=== PATIENT | male | born 1935 | race Caucasian/White ===

== ENCOUNTER 2017-02-06 11:46 | Emergency (ER) | payer OTHER, MEDICARE ==
[~2017-02-06] VITALS: Ht 172.7 cm; Wt 82.0 kg
[~2017-02-06 11:46] MED LIST: ALBU1AER INH; ASPI81TA11 PO; DULC5TAB PO; FERR325T PO; FINA5TAB77 PO; ISOS60 PO; OMEP20TA PO; ONDA4TAB7 PO; PLAV75TA PO; RANO500 PO; TAMS0.4C67 PO; TOPR25TA2 PO; TRAM50TA PO
[2017-02-06] MEDS ORDERED: OMEP40CA2 PO (11:57)
[2017-02-06] MEDS ORDERED: TAMS5CAP PO (11:57)
[2017-02-06] MEDS ORDERED: ASPI1TAB69 PO (11:57)
[2017-02-06] MEDS ORDERED: METO25TA3 PO (11:57)
[2017-02-06] MEDS ORDERED: FINA5TAB2 PO (11:57)
[2017-02-06] MEDS ORDERED: TRAM50TA PO (11:59)
[2017-02-06] MEDS ORDERED: DULC100C PO (11:59)
[2017-02-06] MEDS ORDERED: UMEC1AER INH (11:59)
[2017-02-06] MEDS ORDERED: ZOFR8TAB PO (11:59)
[2017-02-06 12:00] VITALS: BP 160/73; PULSE 62; RESP 16; TEMP 98.1; O2SAT 96
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
[2017-02-06] MEDS ORDERED: ACETAMINOPHEN 325 MG TAB PO ONE (13:00)
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
[2017-02-06] MEDS ORDERED: WALKER WHEELS/F1 MIS (15:10)
--- NOTE | 2017-02-06 16:37 | HHI.FF ---
Face to Face Verification Diagnosis: (1) Femoral condyle fracture (2) Tibial plateau fracture, left Physical Therapy Order: Evaluate and Treat, Improve ambulation, Strength and gait training I have seen patient Mitchell Zurita on 02/06/17. My clinical findings support the need for the requested home health care services because: High risk of falls I certify that my clinical findings support that this patient is homebound because: Unsteady gait/balance Naty Markham MD Feb 06, 2017 16:37
[2017-02-06 16:40] VITALS: BP 162/78; PULSE 64; RESP 16; O2SAT 97
== END 2017-02-06 17:22 | disposition home or self-care (01) ==
LOC: NEPD 11:46
DX: S82.142A Displaced bicondylar fracture of left tibia, initial encounter for closed fracture (principal); S72.422A Displaced fracture of lateral condyle of left femur, initial encounter for closed fracture; I10 Essential (primary) hypertension; V03.90XA Pedestrian on foot injured in collision with car, pick-up truck or van, unspecified whether traffic or nontraffic accident, initial encounter; Z95.1 Presence of aortocoronary bypass graft
CPT/HCPCS: 73564; 73700; 99284; L1830

== ENCOUNTER 2017-02-21 11:55 | Emergency (ER) | payer MEDICARE ==
[~2017-02-21] VITALS: Ht 172.7 cm; Wt 85.0 kg
[~2017-02-21 11:55] MED LIST changes: -ALBU1AER INH; +ASPI1TAB69 PO; -ASPI81TA11 PO; +DULC100C PO; -DULC5TAB PO; -FERR325T PO; +FINA5TAB2 PO; -FINA5TAB77 PO; -ISOS60 PO; +METO25TA3 PO; -OMEP20TA PO; +OMEP40CA2 PO; -ONDA4TAB7 PO; -PLAV75TA PO; -RANO500 PO; -TAMS0.4C67 PO; +TAMS5CAP PO; -TOPR25TA2 PO; +UMEC1AER INH; +WALKER WHEELS/F1 MIS; +ZOFR8TAB PO
[2017-02-21 11:59] VITALS: BP 182/81; PULSE 64; RESP 18; TEMP 97.8; O2SAT 98
--- NOTE | 2017-02-21 12:02 | PD ---
Physical Exam Time Seen by Provider: 12:00 Narrative 81 y/o male here for evaluation of bilateral proximal arm pain for 3 days. Using a walker because of a L tibial plateau fracture. VSS Seen at triage desk. Awaiting bed placement. Data Data Last Documented VS Vital Signs Date Time Temp Pulse Resp B/P Pulse Ox O2 Delivery O2 Flow Rate FiO2 02/21/17 11:59 97.8 64 18 182/81 98 MDM Medical Record Reviewed: Yes Supervised Visit with JOHN: Stanislav Mendoza February 21, 2017 12:02
[2017-02-21] MEDS ORDERED: BEDSIDE COMMODE1 MI1 ×2 (12:34→12:35)
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
== END 2017-02-21 13:21 | disposition home or self-care (01) ==
LOC: NEPD 11:55
DX: S46.111A Strain of muscle, fascia and tendon of long head of biceps, right arm, initial encounter (principal); S46.112A Strain of muscle, fascia and tendon of long head of biceps, left arm, initial encounter; E78.00 Pure hypercholesterolemia, unspecified; J44.9 Chronic obstructive pulmonary disease, unspecified; I10 Essential (primary) hypertension; Z72.0 Tobacco use; X50.3XXA Overexertion from repetitive movements, initial encounter; Y93.01 Activity, walking, marching and hiking; Y92.69 Other specified industrial and construction area as the place of occurrence of the external cause; Y99.8 Other external cause status
CPT/HCPCS: 99283

== ENCOUNTER 2017-02-24 14:23 | Emergency (ER) | payer OTHER, MEDICARE ==
[~2017-02-24] VITALS: Ht 172.7 cm; Wt 82.0 kg
[~2017-02-24 14:23] MED LIST changes: +BEDSIDE COMMODE1 MI1
[2017-02-24 14:26] VITALS: BP 168/74; PULSE 74; RESP 18; TEMP 98.2; O2SAT 99
--- NOTE | 2017-02-24 15:42 | PD ---
HPI Chief Complaint: Pain: Acute or Chronic Time Seen by Provider: 15:01 Travel History International Travel<30 days: No Contact w/Intl Traveler<30days: No Traveled to known affect area: No History of Present Illness HPI This patient complains of pain in his right arm. It's worse with movement and resistance. He was here for this same complaint 3 days ago. It is not improved. Pain is moderately severe. Sometimes it radiates down from the bicep into his hand or up into his shoulder and neck region. When is transferring from the walker to the wheelchair that's when it is worse. When he puts pressure on the right bicep area the pain gets bad. Patient has history of problem with narcotic addiction and does not want narcotics. He is hasn't to have any sedating medication. This was offered to him 3 days ago but the physician did not want to cause him any drowsiness and increased fall risk. PFSH Past Medical History Hx Anticoagulant Therapy: Yes (ASA) Arthritis: Yes Asthma: No Autoimmune Disease: No Blood Disorders: No Anxiety: No Depression: No Heart Rhythm Problems: No Cancer: Yes (CHRONIC LEUKEMIA) Cardiac Catheterization: Yes (BY DR. HUSSEIN AND BY DR. GOULD) Cardiovascular Problems: Yes (HTN , CAD , CABG X 4 ) High Cholesterol: Yes Chemotherapy: No Chest Pain: Yes Congestive Heart Failure: No COPD: Yes Cerebrovascular Accident: No Coronary Artery Disease: Yes Diabetes: No Diminished Hearing: No Diverticulitis: Yes Endocrine: No Gastrointestinal Disorders: Yes (HU'S ESOPH., GERD, CONSTIPATION) GERD: Yes Glaucoma: No Genitourinary: No Headaches: No Hepatitis: No Hiatal Hernia: No Hypertension: Yes Immune Disorder: No Inguinal Hernia: Yes Implanted Vascular Access Dvce: Yes Kidney Stones: No Musculoskeletal: Yes (SPINAL STENOSIS) Neurologic: Yes (MIGRAINES- NOT IN THE PAST 30 YEARS, ) Psychiatric: No Reproductive: No Respiratory: Yes (COPD) Integumentary: No Migraines: No Myocardial Infarction: No Radiation Therapy: No Renal Failure: No Seizures: No Sickle Cell Disease: No Sleep Apnea: No Thyroid Disease: No Triglycerides - High: Yes Ulcer: No Past Surgical History Abdominal Surgery: Yes (ABD./ ING. HERNIA REP.; COLON RESECT., LYSIS ADHESIONS , APPY) AICD: No Appendectomy: Yes Arteriovenous Shunt: No Body Medical Devices: CERVICAL HARDWARE Cardiac Surgery: Yes (CABG) Cholecystectomy: Yes Coronary Artery Bypass Graft: No Ear Surgery: No Endocrine Surgery: No Eye Surgery: No Genitourinary Surgery: No Insulin Pump: No Joint Replacement: No Oral Surgery: No Pacemaker: No Thoracic Surgery: Yes (CABG) Other Surgery: Yes (APPY, COLON RESECT, SB RESECT, C SPINE SX, R SHOULDER REP, GIANLUCA, [facility] HER ) Social History Alcohol Use: No Tobacco Use: No Substance Use: No Allergies-Medications (Allergen,Severity, Reaction): Coded Allergies: Toradol (Verified Adverse Reaction, Severe, vomit, 02/06/17) po toradol only iv toradol ok Uncoded Allergies: no narcotics (Adverse Reaction, Mild, 05/21/13) FEARS HAVING TO EXPERIENCE WITHDRAWAL AGAIN Reported Meds & Prescriptions Reported Meds & Active Scripts Active Bedside Commode (Device) 1 Mis Mis 1 Ea .ROUTE DIRECTED Walker with Front Wheels (Device) 1 Mis Mis 1 Ea .ROUTE DIRECTED Reported Dulcolax Stool Softener (Docusate Sodium) 100 Mg Cap 100 Mg PO BID Zofran (Ondansetron HCl) 8 Mg Tab 8 Mg PO TID PRN Anoro Ellipta Inh (Umeclidinium/Vilanterol) 62.5-25 Mcg/Act Aero 1 Puff INH DAILY Tramadol (Tramadol HCl) 50 Mg Tab 50 Mg PO Q6H PRN Finasteride 5 Mg Tab 5 Mg PO DAILY Do not crush. Aspirin 81 Mg Tabdr 81 Mg PO DAILY Flomax (Tamsulosin HCl) 0.4 Mg Cap 0.4 Mg PO HS Metoprolol Tartrate 25 Mg Tab 25 Mg PO BID Omeprazole 40 Mg Cap 40 Mg PO DAILY Review of Systems General / Constitutional: No: Fever HENT: No: Headaches Cardiovascular: No: Chest Pain or Discomfort, Diaphoresis Respiratory: No: Cough Physical Exam Narrative NECK: Symmetrical appearance, midline trachea. No mass or crepitus. Thyroid without enlargement, tenderness, or mass. NEUROLOGICAL: Awake and alert. Pupils are equal round and reactive. Motor and sensory grossly within normal limits. Five out of 5 muscle strength in all muscle groups. Normal speech. SKIN: Focused skin assessment reveals no rash or ulcers. Skin is warm and dry. Palpation shows no induration or nodules. Right arm: There is some tenderness in the distal bicep region. There is no obvious or abnormality objectively. No ecchymosis or edema. Pulse and sensation intact. He has some pain when he image editor tightly. Data Data Last Documented VS Vital Signs Date Time Temp Pulse Resp B/P Pulse Ox O2 Delivery O2 Flow Rate FiO2 02/24/17 14:26 98.2 74 18 168/74 99 MDM Medical Decision Making Medical Screen Exam Complete: Yes Emergency Medical Condition: Yes Medical Record Reviewed: Yes Differential Diagnosis Biceps tear, brachial plexus injury, muscle strain Narrative Course I have reviewed the patient's electronic medical record. Reviewed his visit from 3 days ago for the same problem. I offered medication for pain but he declines He does have an appointment with his orthopedic surgeon Dr. Crawford coming up but he is frustrated with the timing of the visit, he would like it much more prompt than its been offered. I don't have a lot emergently to offer him. He says he cannot have an MRI due to implanted device I don't feel plain films would be helpful I think orthopedic follow-up and primary care follow-up are his next step He declines any medications Diagnosis Primary Impression: Right upper limb pain Additional Instructions: Follow-up with primary care and orthopedist Med/Other Pt SpecificInfo: Other Disposition: 01 DISCHARGE HOME Condition: Stable Gabino Polanco MD February 24, 2017 15:42
== END 2017-02-24 16:26 | disposition home or self-care (01) ==
LOC: NEPD 14:23
DX: M79.601 Pain in right arm (principal)
CPT/HCPCS: 99283

== ENCOUNTER → 2017-04-11 | Day surgery (SDC) | payer MEDICARE ==
[~2017-04-11] MED LIST changes: +DEXAMETHASONE SOD PHOS 4 MG/ML VIAL ONE; +EPINEPHrine HCL (1:1000) 1 MG/ML VIAL ONE; +LACTATED RINGER'S 1000 ML INJ 1,000 ML ONE; +MOXIFLOXACIN 0.5% OPHT SOLN 3 ML BTL ONE; +PHENYLEPHRINE HCL 10% OPTH SOLN 5 ML BTL ONE; +SODIUM CHLORIDE 0.9% INJ 10 ML ONE; +TOBRAMYCIN/DEXAMETHASONE OPTH OINT 3.5 GM TUBE ONE; +ceFAZolin INJ 1,000 MG VIAL ONE; +prednisoLONE ACETATE 1% OPHT SUSP 5 ML BTL ONE
== END | disposition home or self-care (01) ==
LOC: ESDC 10:45
PROVIDERS: ATTEND Ophthalmology
DX: H33.8 Other retinal detachments (principal)
CPT/HCPCS: J0171; J0690; J1100; J7120

== ENCOUNTER → 2017-04-12 | Day surgery (SDC) | payer MEDICARE ==
[~2017-04-12] MED LIST changes: +ALTEPLASE LEFT EYE ONE; +ONDANSETRON HCL 4 MG/2 ML VIAL IV PUSH ONE; +PROPARACAINE HCL 0.5% OPHT SOLN 15 ML BTL ONE; +PROPOFOL 200 MG/20 ML AMP IV ONE; +TRIAMCINOLONE ACETONIDE 40 MG/ML VIAL ONE
--- NOTE | 2017-04-14 16:39 | MP ---
cc: [facility]List DATE OF SURGERY: 04/12/2017 DATE OF : 1935 PREOPERATIVE DIAGNOSIS: Hemorrhagic retinal detachment, macular degeneration, central vision loss, left eye. POSTOPERATIVE DIAGNOSIS Hemorrhagic retinal detachment, macular degeneration, central vision loss, left eye. PROCEDURE Pars vitrectomy with repair of hemorrhagic retinal detachment using subretinal tissue plasminogen activator, air-fluid exchange, left eye. ANESTHESIA Dr. Hunter, general. BLOOD LOSS Less than 1 cc. INDICATIONS FOR PROCEDURE This is a delightful patient presented with substantial vision loss in his left eye. The patient was found to have a large cell macula hemorrhage, causing hemorrhagic retinal detachment affecting the majority of his macula from retinacular degeneration. The patient elected for immediate treatment with Anti <<1:08>> injection and then hemorrhagic retinal detachment repair via Pars plana vitrectomy with tissue plasminogen activator. The patient understands the risks, benefits and alternatives and the guarded prognosis with the severity of his condition. PROCEDURE NOTE Informed consent was obtained, the patient brought to operating room for anesthesia was established. The left eye was prepped and draped in sterile fashion with Betadine in the conjunctival fornix. A deep port pars vitrectomy was established with self-retaining infusion cannula. Core vitreous was evacuated. Posterior vitreous detachment created. Subretinal TPA was injected using [place] subretinal cannula. Scleral depression examination revealed no retinal holes, tears, peripheral retinal holes, tears or detachments. Partial air-fluid change was carried out. The trocars were removed and sclerotomies closed. The patient will remain supine for 45 minutes after t-PA injection and then maintain a head-up position. The eye was patched with subconjunctival Ancef and dexamethasone were given. Eye was patched Tobramycin ointment. The patient brought to recovery room in stable condition. Continue followup with [facility] for his postoperative care. MD JOAQUIN Cason/dania /5:38 PM /4:19 PM
== END | disposition home or self-care (01) ==
LOC: ESDC 14:25
PROVIDERS: ATTEND Ophthalmology
DX: H33.22 Serous retinal detachment, left eye (principal); H35.30 Unspecified macular degeneration
CPT/HCPCS: 00145; 67108; J0171; J0690; J1100; J2405; J3010; J3301; J7120

== ENCOUNTER → 2017-08-10 | Outpatient (CLI) | payer MEDICARE ==
[~2017-08-10] MED LIST changes: -ALTEPLASE LEFT EYE ONE; -DEXAMETHASONE SOD PHOS 4 MG/ML VIAL ONE; -EPINEPHrine HCL (1:1000) 1 MG/ML VIAL ONE; -LACTATED RINGER'S 1000 ML INJ 1,000 ML ONE; -MOXIFLOXACIN 0.5% OPHT SOLN 3 ML BTL ONE; -ONDANSETRON HCL 4 MG/2 ML VIAL IV PUSH ONE; -PHENYLEPHRINE HCL 10% OPTH SOLN 5 ML BTL ONE; -PROPARACAINE HCL 0.5% OPHT SOLN 15 ML BTL ONE; -PROPOFOL 200 MG/20 ML AMP IV ONE; -SODIUM CHLORIDE 0.9% INJ 10 ML ONE; -TOBRAMYCIN/DEXAMETHASONE OPTH OINT 3.5 GM TUBE ONE; -TRIAMCINOLONE ACETONIDE 40 MG/ML VIAL ONE; -ceFAZolin INJ 1,000 MG VIAL ONE; -prednisoLONE ACETATE 1% OPHT SUSP 5 ML BTL ONE
--- NOTE | 2017-08-14 12:43 | RSPPFT ---
DATE OF PROCEDURE: 08/10/17 COMMENTS: VOLUMES DYNAMIC: FVC normal; FEV1 moderately reduced. STATIC: TLC, FRC and RV normal. FLOWS: FEV1% moderately reduced; FEF 25-75 severely reduced. DIFFUSION: Moderately reduced. FLOW VOLUME LOOP: Pattern of variable intrathoracic airways obstruction. IMPRESSION: Moderately severe obstructive ventilatory defect with no significant hyperinflation. There is a moderate reduction in diffusion and mild elevation in airways resistance. No significant improvement post-bronchodilator, although this should not preclude a trial of therapy if clinically indicated.
== END ==
LOC: HRSP 13:06
PROVIDERS: ATTEND Internal Medicine
DX: J44.9 Chronic obstructive pulmonary disease, unspecified (principal)
CPT/HCPCS: 94060; 94726; 94729

== ENCOUNTER 2018-11-02 18:46 | Observation (INO) ==
--- NOTE | 2018-11-02 20:14 | ED ---
HPI General Chief complaint: Weakness Stated complaint: weakness Time Seen by Provider: 11/02/18 19:54 History of Present Illness HPI narrative: 83-year-old male with a history of hypertension and, CAD with CABG x4, leukemia, COPD, chronic low back pain presents to the emergency department for evaluation of fatigue and malaise for 1 week with elevated white blood cell count. Patient states that for the last week he has had generalized weakness, fatigue and overall malaise. States that he saw his primary care earlier this week about these complaints and they did blood work as an outpatient and called and told him that his white blood cell count was 20. States they advised him to come to the ED for evaluation. The patient states for the past week he has also been feeling confused, states that he is forgetting things more easily. Patient's is at bedside and states he has been more forgetful over the last week. Patient is awake, alert and oriented x4. States he feels slightly short of breath. States he had a cough last night but that today it has improved. States he is also feeling slightly lightheaded. Denies syncope, dizziness, chest pain, abdominal pain, nausea, vomiting, diarrhea, swelling of the extremities, calf pain, dysuria. PCP Dr. Duncan. No other complaints. Related Data Home Medications Medication Instructions Recorded Confirmed albuterol sulfate [ProAir HFA] 1 puff INHALATION Q4-6H PRN 11/02/18 11/02/18 amlodipine 5 mg PO BID 11/02/18 11/02/18 aspirin [Aspirin Low Dose] 81 mg PO DAILY 11/02/18 11/02/18 bisacodyl [Dulcolax (bisacodyl)] 5 mg PO DAILY 11/02/18 11/02/18 jxihvklb-suc-GL-lycopen-lutein 1 tab PO DAILY 11/02/18 11/02/18 [Centrum Silver] omeprazole 40 mg PO DAILY 11/02/18 11/02/18 ondansetron 8 mg PO BID PRN 11/02/18 11/02/18 tiotropium-olodaterol [Stiolto 2 puff INHALATION DAILY 11/02/18 11/02/18 Respimat] tramadol 50 mg PO Q6H 11/02/18 11/02/18 Allergies Allergy/AdvReac Type Severity Reaction Status Date / Time ketorolac AdvReac Severe vomit Verified 11/02/18 19:28 no narcotics AdvReac Mild Anaphylaxis Uncoded 11/02/18 19:28 Review of Systems ROS: all other systems reviewed are negative COUNT INCLUDES THE [facility] Medical History Medical History Arthritis (Acute) COPD (chronic obstructive pulmonary disease) (Acute) Cataract (Acute) Chronic lymphocytic leukemia (Acute) Coronary artery disease (Acute) HTN (hypertension) (Acute) History of open sigmoidectomy (Acute) Macular degeneration (Acute) Sigmoid diverticulosis (Acute) Surgical History Surgical History History of appendectomy (Acute) History of cholecystectomy (Acute) Hx of inguinal hernia surgery (Acute) Previous back surgery (Acute) S/P CABG x 4 (Acute) S/P hernia surgery (Acute) S/P laparotomy (Acute) Family History Family History Mother COPD (chronic obstructive pulmonary disease) Father Hodgkin lymphoma Social History Social History Substance History: No History of Abuse Second Hand Smoke Exposure: No Smoking Status: Former smoker (Quit smoking 15-20 years ago) How Often Do You Have a Drink Containing Alcohol: Never Recent Travel in [facility] within the Last 8 Weeks: No Recent Out of Country Travel within the Last 8 Weeks: No Immunization History Tetanus Immunization: Unsure Exam Narrative Exam Narrative: GENERAL: Well-nourished and well-developed pleasant patient in no acute distress who is nontoxic appearing. SKIN: Warm and dry. HEAD: Normocephalic and atraumatic. EYES: No injection, drainage, or hyphema noted. PERRLA. EOMI. ENT: No nasal drainage noted. Oropharynx is clear and the TMs are normal with good landmarks. NECK: Supple and the trachea is midline. CARDIOVASCULAR: Regular rate and rhythm. RESPIRATORY: Breath sounds are equal bilaterally with no accessory muscle use, wheezing, rhonchi, or crackles. GASTROINTESTINAL: Abdomen is soft, non-tender, and nondistended. MUSCULOSKELETAL: No obvious deformities, swelling, cyanosis, or ecchymosis is present throughout the upper and lower extremities. Patient has full range of motion without any signs of neurovascular compromise. Distal pulses are 2+ throughout. Strength 5/5 upper and lower extremity is equal bilaterally. NEUROLOGICAL: Awake, alert, and oriented. Normal speech and gait. Cranial nerves are grossly intact. Course Initial Documented Vital Signs Temperature 98.5 F 11/02/18 19:20 Pulse Rate 69 11/02/18 19:20 Respiratory Rate 20 11/02/18 19:20 Blood Pressure 167/67 H 11/02/18 19:20 Pulse Oximetry 95 11/02/18 19:20 Last Documented Vital Signs Temperature 98.3 F 11/03/18 20:00 Pulse Rate 66 11/03/18 20:00 Respiratory Rate 16 11/03/18 20:00 Blood Pressure 173/71 H 11/03/18 20:00 Pulse Oximetry 94 L 11/03/18 20:00 Medical Decision Making MDM Narrative Medical decision making narrative: 83-year-old male presents to the emergency department for evaluation of 1 week history of generalized weakness, fatigue and confusion. Patient is afebrile, vital signs are stable. Physical examination is essentially unremarkable, no focal neurologic deficits. IV access is obtained, labs been drawn and sent. Patient is placed on cardiac telemetry and pulse oximetry monitoring. After I did physical examination the patient began complaining of nausea therefore was administered Zofran 4 mg IV. CBC shows white blood cell count of 19.8. CMP is unremarkable. Lactic acid within normal limits. Head CT shows stable senescent changes without acute intracranial abnormality. Chest x-ray shows slight left lung base atelectasis, no focal consolidation. Influenza negative. Patient will be kept in observation for leukocytosis. Concern is that this is related to his leukemia and patient should have evaluation by his oncologist. Discussed with Dr. Pink [facility] who accepts patient to her service. I discussed the case with my attending physician Dr. Alcantara who is aware of the patients history, physical examination findings, and treatment plan. Medical Screen Exam Complete: Yes Emergency Medical Condition: Yes Lab Data Result diagrams: 11/03/18 08:45 11/03/18 08:45 Lab Results 11/02/18 11/02/18 11/02/18 Range/Units 20:15 20:15 20:15 WBC 19.8 H (4.0-11.0) th/mm3 RBC 5.25 (4.50-5.90) mil/mm3 Hgb 16.4 (13.0-17.0) gm/dL Hct 48.3 (39.0-51.0) % MCV 92.0 (80.0-100.0) fL MCH 31.2 (27.0-34.0) pg MCHC 33.9 (32.0-36.0) % RDW 15.6 (11.6-17.2) % Plt Count 166 (150-450) th/mm3 MPV 8.8 (7.0-11.0) fL Prelim Diff (Auto) Slide review pending Neut % (Auto) 27.2 (16.0-70.0) % Lymph % (Auto) 67.6 H (9.0-44.0) % [place] % (Auto) 4.6 (0.0-8.0) % Eos % (Auto) 0.3 (0.0-4.0) % Baso % (Auto) 0.3 (0.0-2.0) % Neut # (Auto) 5.4 (1.8-7.7) th/mm3 Lymph # (Auto) 13.4 H (1.0-4.8) th/mm3 [place] # (Auto) 0.9 (0.0-0.9) th/mm3 Eos # (Auto) 0.1 (0.0-0.4) th/mm3 Baso # (Auto) 0.0 (0.0-0.2) th/mm3 WBC Differential Manual diff final Seg Neuts % (Manual) 28 (16-70) % Band Neuts % (Manual) (0-6) % Lymphocytes % (Manual) 68 H (9-44) % Monocytes % (Manual) 4 (0-8) % Eosinophils % (Manual) (0-4) % Abs Neuts (Manual) 5.5 (1.8-7.7) th/mm3 Differential Comment . Smudge Cells (None) Platelet Estimate Normal (Normal) Platelet Morphology Normal (Normal) RBC Morphology Normal (Normal) Sodium 142 (136-145) meq/L Potassium 3.8 (3.5-5.1) meq/L Chloride 106 (98-107) meq/L Carbon Dioxide 27.8 (21.0-32.0) meq/L Anion Gap 8 (5-15) meq/L BUN 14 (7-18) mg/dL Creatinine 1.10 (0.60-1.30) mg/dL Estimated GFR 64 L (>89) mL/min Random Glucose 94 (74-106) mg/dL Lactic Acid 1.1 (0.4-2.0) mmol/L Calcium 8.8 (8.5-10.1) mg/dL Magnesium 2.5 (1.5-2.5) mg/dL Total Bilirubin 0.4 (0.2-1.0) mg/dL AST 13 L (15-37) U/L ALT 21 (12-78) U/L Alkaline Phosphatase 77 (45-117) U/L Total Protein 7.3 (6.4-8.2) g/dL Albumin 3.6 (3.4-5.0) g/dL Lipase 293 (73-393) U/L Urine Color (Yellw/Straw) Urine Clarity (Clear) Urine pH (5.0-8.5) Ur Specific [place] (1.002-1.035) Urine Protein (Neg-Trace) mg/dL Urine Glucose (UA) (Negative) mg/dL Urine Ketones (Negative) mg/dL Urine Occult Blood (Negative) Urine Nitrate (Negative) Urine Bilirubin (Negative) Urine Urobilinogen (Less than 2) mg/dL Ur Leukocyte Esterase (Negative) Urine RBC (0-3) /hpf Urine WBC (0-5) /hpf Urine Mucus (Occasional) /lpf Micro UA Comment Ur Microscopic Review Urine Culture Comments IgG (690-1690) mg/dL IgA (107-591) mg/dL IgM (37-225) mg/dL 11/02/18 11/03/18 11/03/18 Range/Units 20:15 00:02 08:45 WBC 13.4 H (4.0-11.0) th/mm3 RBC 4.45 L (4.50-5.90) mil/mm3 Hgb 14.0 D (13.0-17.0) gm/dL Hct 40.5 (39.0-51.0) % MCV 91.1 (80.0-100.0) fL MCH 31.4 (27.0-34.0) pg MCHC 34.5 (32.0-36.0) % RDW 15.2 (11.6-17.2) % Plt Count 131 L (150-450) th/mm3 MPV 8.1 (7.0-11.0) fL Prelim Diff (Auto) Slide review pending Neut % (Auto) 28.9 (16.0-70.0) % Lymph % (Auto) 66.9 H (9.0-44.0) % [place] % (Auto) 3.7 (0.0-8.0) % Eos % (Auto) 0.3 (0.0-4.0) % Baso % (Auto) 0.2 (0.0-2.0) % Neut # (Auto) 3.9 (1.8-7.7) th/mm3 Lymph # (Auto) 9.0 H (1.0-4.8) th/mm3 [place] # (Auto) 0.5 (0.0-0.9) th/mm3 Eos # (Auto) 0.0 (0.0-0.4) th/mm3 Baso # (Auto) 0.0 (0.0-0.2) th/mm3 WBC Differential Manual diff final Seg Neuts % (Manual) 22 (16-70) % Band Neuts % (Manual) 1 (0-6) % Lymphocytes % (Manual) 73 H (9-44) % Monocytes % (Manual) 3 (0-8) % Eosinophils % (Manual) 1 (0-4) % Abs Neuts (Manual) 3.1 (1.8-7.7) th/mm3 Differential Comment . Smudge Cells Present H (None) Platelet Estimate Low L (Normal) Platelet Morphology Normal (Normal) RBC Morphology Normal (Normal) Sodium (136-145) meq/L Potassium (3.5-5.1) meq/L Chloride (98-107) meq/L Carbon Dioxide (21.0-32.0) meq/L Anion Gap (5-15) meq/L BUN (7-18) mg/dL Creatinine (0.60-1.30) mg/dL Estimated GFR (>89) mL/min Random Glucose (74-106) mg/dL Lactic Acid (0.4-2.0) mmol/L Calcium (8.5-10.1) mg/dL Magnesium (1.5-2.5) mg/dL Total Bilirubin (0.2-1.0) mg/dL AST (15-37) U/L ALT (12-78) U/L Alkaline Phosphatase (45-117) U/L Total Protein (6.4-8.2) g/dL Albumin (3.4-5.0) g/dL Lipase Cancelled (73-393) U/L Urine Color Yellow (Yellw/Straw) Urine Clarity Hazy H (Clear) Urine pH 5.0 (5.0-8.5) Ur Specific [place] 1.017 (1.002-1.035) Urine Protein Negative (Neg-Trace) mg/dL Urine Glucose (UA) Negative (Negative) mg/dL Urine Ketones Negative (Negative) mg/dL Urine Occult Blood Negative (Negative) Urine Nitrate Negative (Negative) Urine Bilirubin Negative (Negative) Urine Urobilinogen Less than 2 (Less than 2) mg/dL Ur Leukocyte Esterase Negative (Negative) Urine RBC 1 (0-3) /hpf Urine WBC 1 (0-5) /hpf Urine Mucus Few H (Occasional) /lpf Micro UA Comment Culture not ind Ur Microscopic Review Not Reportable Urine Culture Comments Culture not ind IgG (690-1690) mg/dL IgA (107-591) mg/dL IgM (37-225) mg/dL 11/03/18 11/03/18 Range/Units 08:45 08:45 WBC (4.0-11.0) th/mm3 RBC (4.50-5.90) mil/mm3 Hgb (13.0-17.0) gm/dL Hct (39.0-51.0) % MCV (80.0-100.0) fL MCH (27.0-34.0) pg MCHC (32.0-36.0) % RDW (11.6-17.2) % Plt Count (150-450) th/mm3 MPV (7.0-11.0) fL Prelim Diff (Auto) Neut % (Auto) (16.0-70.0) % Lymph % (Auto) (9.0-44.0) % [place] % (Auto) (0.0-8.0) % Eos % (Auto) (0.0-4.0) % Baso % (Auto) (0.0-2.0) % Neut # (Auto) (1.8-7.7) th/mm3 Lymph # (Auto) (1.0-4.8) th/mm3 [place] # (Auto) (0.0-0.9) th/mm3 Eos # (Auto) (0.0-0.4) th/mm3 Baso # (Auto) (0.0-0.2) th/mm3 WBC Differential Seg Neuts % (Manual) (16-70) % Band Neuts % (Manual) (0-6) % Lymphocytes % (Manual) (9-44) % Monocytes % (Manual) (0-8) % Eosinophils % (Manual) (0-4) % Abs Neuts (Manual) (1.8-7.7) th/mm3 Differential Comment Smudge Cells (None) Platelet Estimate (Normal) Platelet Morphology (Normal) RBC Morphology (Normal) Sodium 140 (136-145) meq/L Potassium 4.1 (3.5-5.1) meq/L Chloride 108 H (98-107) meq/L Carbon Dioxide 25.1 (21.0-32.0) meq/L Anion Gap 7 (5-15) meq/L BUN 11 (7-18) mg/dL Creatinine 0.89 (0.60-1.30) mg/dL Estimated GFR 82 L (>89) mL/min Random Glucose 96 (74-106) mg/dL Lactic Acid (0.4-2.0) mmol/L Calcium 8.1 L (8.5-10.1) mg/dL Magnesium (1.5-2.5) mg/dL Total Bilirubin 0.7 (0.2-1.0) mg/dL AST 9 L (15-37) U/L ALT 18 (12-78) U/L Alkaline Phosphatase 58 (45-117) U/L Total Protein 5.6 L D (6.4-8.2) g/dL Albumin 2.7 L D (3.4-5.0) g/dL Lipase (73-393) U/L Urine Color (Yellw/Straw) Urine Clarity (Clear) Urine pH (5.0-8.5) Ur Specific [place] (1.002-1.035) Urine Protein (Neg-Trace) mg/dL Urine Glucose (UA) (Negative) mg/dL Urine Ketones (Negative) mg/dL Urine Occult Blood (Negative) Urine Nitrate (Negative) Urine Bilirubin (Negative) Urine Urobilinogen (Less than 2) mg/dL Ur Leukocyte Esterase (Negative) Urine RBC (0-3) /hpf Urine WBC (0-5) /hpf Urine Mucus (Occasional) /lpf Micro UA Comment Ur Microscopic Review Urine Culture Comments IgG 468 L Cancelled (690-1690) mg/dL IgA 86 L Cancelled (107-591) mg/dL IgM 22 L Cancelled (37-225) mg/dL Imaging Data Radiologist's impression: Chest X-Ray 11/02/18 20:11 CONCLUSION: Slight left lung base atelectasis. Head CT 11/02/18 20:11 CONCLUSION: 1. Stable senescent changes without acute intracranial abnormality. . Discharge Plan Discharge Disposition Patient Disposition: ED Admit(ED Internal Use Only) Discharge Condition Condition: Stable Discharge Order Discharge Orders: ED Use Only Admit Order (Routine); Ordered 11/02/18 Ordered By: Ramonita Thacker Discharge Details Diagnosis: Leukocytosis, Generalized weakness, Altered mental status Physicians Team ED Provider: Jacob Alcantara ED Midlevel Provider: Ramonita Thacker Primary Care Provider: Jian Duncan Attending Provider: Christopher Sanchez Other Providers: Joaquin Pierce Status ED Status: Left Department Discharge Information Discharge Date/Time: 11/03/18 00:40
[2018-11-02 20:36] LABS: Baso % (Auto) 0.3 % (0.0-2.0); Eos # (Auto) 0.1 th/mm3 (0.0-0.4); Eos % (Auto) 0.3 % (0.0-4.0); Hematocrit 48.3 % (39.0-51.0); Hemoglobin 16.4 gm/dL (13.0-17.0); Lymph # (Auto) 13.4 th/mm3 (1.0-4.8); Lymph % (Auto) 67.6 % (9.0-44.0); Mean Corpuscular HGB Conc 33.9 % (32.0-36.0); Mean Corpuscular Hemoglobin 31.2 pg (27.0-34.0); Mean Platelet Volume 8.8 fL (7.0-11.0); Mono # (Auto) 0.9 th/mm3 (0.0-0.9); Mono % (Auto) 4.6 % (0.0-8.0); Neut # (Auto) 5.4 th/mm3 (1.8-7.7); Neut % (Auto) 27.2 % (16.0-70.0); Platelet Count 166 th/mm3 (150-450); Red Blood Count 5.25 mil/mm3 (4.50-5.90); Red Cell Distribution Width 15.6 % (11.6-17.2); White Blood Count 19.8 th/mm3 (4.0-11.0)
--- NOTE | 2018-11-02 20:39 | CT ---
EXAM DATE: 11/02/2018 8:36 PM EST AGE/SEX: 83 years / Male INDICATIONS: Altered mental status. CLINICAL DATA: This is the patient's initial encounter. Patient reports that signs and symptoms have been present for 1 day and indicates a pain score of 0/10. MEDICAL/SURGICAL HISTORY: Chronic obstructive pulmonary disease. Hypertension. Leukemia. CABG. B ack surgery. RADIATION DOSE: 34.72 CTDI (mGy) COMPARISON: [facility] [place], CT BRAIN W/O CONTRAST, 10/08/2012. . TECHNIQUE: CT of the head without contrast. Using automated exposure control and adjustment of the mA and/or kV according to patient size, radiation dose was kept as low as reasonably achievable to ob tain optimal diagnostic quality images. DICOM format image data is available electronically for revi ew and comparison. FINDINGS: Cerebrum: Moderate diffuse cerebral atrophy. The ventricles are normal for degree of atrophy. No bree dence of midline shift, mass lesion, hemorrhage or acute infarction. No extraaxial fluid collections are seen. Posterior Fossa: The cerebellum and brainstem are intact. The 4th ventricle is midline. The cerebe llopontine angle is unremarkable. Extracranial: The visualized portion of the orbits is intact. Skull: The calvaria is intact. No evidence of skull fracture. CONCLUSION: 1. Stable senescent changes without acute intracranial abnormality. . Electronically signed by: Enoch Huerta MD Board Certified Radiologist 11/02/2018 8:38 PM EST
--- NOTE | 2018-11-02 20:51 | XR ---
EXAM DATE: 11/02/2018 8:48 PM EST AGE/SEX: 83 years / Male INDICATIONS: Fever. CLINICAL DATA: This is the patient's initial encounter. Patient reports that signs and symptoms have been present for 1 day and indicates a pain score of 0/10. MEDICAL/SURGICAL HISTORY: . Hypertension. Leukemia. Emphysema. COPD. CABG. Cardiac catheteriz ation. Spinal stimulator. COMPARISON: [facility], XR CHEST PA AND LAT, 05/20/2016. . FINDINGS: There is evidence for prior median sternotomy. There is mild atelectasis left lung base above the hemidiaphragm. Focal consolidation is not seen. He art and mediastinum are unremarkable for technique. CONCLUSION: Slight left lung base atelectasis. Electronically signed by: Diego Mckeon MD Board Certified Radiologist 11/02/2018 8:49 PM EST
[2018-11-02 21:00] LABS: Albumin 3.6 g/dL (3.4-5.0); Anion Gap 8 meq/L (5-15); Aspartate Aminotransferase 13 U/L (15-37); Blood Urea Nitrogen 14 mg/dL (7-18); Calcium 8.8 mg/dL (8.5-10.1); Carbon Dioxide 27.8 meq/L (21.0-32.0); Chloride 106 meq/L (98-107); Glomerular Filtration Rate 64 mL/min (>89); Glucose,Random 94 mg/dL (74-106); Magnesium 2.5 mg/dL (1.5-2.5); Potassium 3.8 meq/L (3.5-5.1); Sodium 142 meq/L (136-145)
[2018-11-02 21:02] LABS: Alanine Aminotransferase 21 U/L (12-78)
[2018-11-02 21:03] LABS: Alkaline Phosphatase 77 U/L (45-117); Total Protein 7.3 g/dL (6.4-8.2)
[2018-11-02 21:25] LABS: Lymphocytes 68 % (9-44); Monocytes 4 % (0-8); Platelet Estimate Normal (Normal); Platelet Morphology Normal (Normal); RBC Morphology Normal (Normal)
[2018-11-02 22:13] LABS: Lipase 293 U/L (73-393)
[2018-11-02] MEDS ORDERED: Acetaminophen 325 MG Tablet PO PRN (23:12)
[2018-11-02] MEDS ORDERED: Bisacodyl 10 MG Supp RECTAL PRN (23:12)
--- NOTE | 2018-11-02 23:14 | P.HPIM ---
History of Present Illness Primary Care Physician: Jian Duncan MD History of Present Illness: This is a an 83-year-old male with a PMH of HTN, COPD, CAD, Chronic Back Pain and CLL who was referred to the ER by his PCP for elevated WBC of 25 on outpatient labs. States he's been having generalized weakness and fatigue x1 wk w/ non-productive cough, denies fever or chills. Follows w/ Dr. José for COPD, states he completed Medrol Dosepak few days ago. also notes increased confusion/forgetfulness in the last week. On arrival, BP 167/67, HR 69, O2 sat 95% on RA, Afebrile. WBC 19.8, previously 20.2 on 11/02/2018. Chemistry unremarkable. UA pending. CT Head with stable findings, no acute abnormality. CXR slight left lung base atelectasis. Diagnosis (1) Leukocytosis: (2) COPD (chronic obstructive pulmonary disease): (3) Encephalopathy: Review of Systems PAST FAMILY HISTORY: Reviewed. No h/o DM or CAD Review of Systems: all other systems reviewed are negative [facility] Medical History Medical History COPD (chronic obstructive pulmonary disease) (Acute) HTN (hypertension) (Acute) Leukemia (Acute) Surgical History Surgical History Previous back surgery (Acute) S/P CABG x 4 (Acute) Social History Social History Substance History: No History of Abuse Second Hand Smoke Exposure: No Smoking Status: Former smoker How Often Do You Have a Drink Containing Alcohol: Never Recent Travel in [facility] within the Last 8 Weeks: No Recent Out of Country Travel within the Last 8 Weeks: No Immunization History Tetanus Immunization: Unsure Medications and Allergies Allergies Allergy/AdvReac Type Severity Reaction Status Date / Time ketorolac AdvReac Severe vomit Verified 11/02/18 19:28 no narcotics AdvReac Mild Anaphylaxis Uncoded 11/02/18 19:28 Home Medications Medication Instructions Recorded Confirmed Type albuterol sulfate [ProAir HFA] 1 puff INHALATION Q4-6H PRN 11/02/18 11/02/18 History amlodipine 5 mg PO BID 11/02/18 11/02/18 History aspirin [Aspirin Low Dose] 81 mg PO DAILY 11/02/18 11/02/18 History bisacodyl [Dulcolax (bisacodyl)] 5 mg PO DAILY 11/02/18 11/02/18 History ggfewxhk-viv-MV-lycopen-lutein 1 tab PO DAILY 11/02/18 11/02/18 History [Centrum Silver] omeprazole 40 mg PO DAILY 11/02/18 11/02/18 History ondansetron 8 mg PO BID PRN 11/02/18 11/02/18 History tiotropium-olodaterol [Stiolto 2 puff INHALATION DAILY 11/02/18 11/02/18 History Respimat] tramadol 50 mg PO Q6H 11/02/18 11/02/18 History Active Medications: Active Medications Acetaminophen (Tylenol) 650 mg PO Q4H PRN PRN Reason: Temp > 100.4 Albuterol (Ventolin Hfa Inh) 1 puff INH Q4H PRN PRN Reason: Shortness Of Breath Aspirin (Ecotrin) 81 mg PO DAILY DIANE Physical Exam Vital signs: Vital Signs 11/02/18 19:20 11/02/18 19:44 11/02/18 20:30 Temperature 98.5 F Pulse Rate 69 Respiratory Rate 20 Blood Pressure 167/67 H Pulse Oximetry 95 95 95 11/02/18 22:12 11/02/18 22:14 Temperature Pulse Rate 70 74 Respiratory Rate 16 Blood Pressure 126/61 Pulse Oximetry 95 Intake & Output 11/02/18 11/02/18 11/03/18 06:59 18:59 06:59 Weight 73.482 kg Narrative: PE: GENERAL: Elderly white male in no acute distress, but appears tired/weak, + intermittent cough. at bedside SKIN: Focused skin assessment warm and dry. HEENT: PERRLA, EOMI. No scleral icterus or conjunctival pallor. No lid lag or facial droop. CARDIOVASCULAR: Regular rate and rhythm. No obvious murmurs to auscultation. No chest tenderness to palpation. RESPIRATORY: No obvious rhonchi or wheezing. Clear to auscultation. Breath sounds equal bilaterally. GASTROINTESTINAL: Abdomen soft, non-tender, nondistended. BS normal. MUSCULOSKELETAL: Extremities without clubbing, cyanosis, or edema. No obvious deformities. NEUROLOGICAL: Awake, alert and oriented x4. No focal neurologic deficits. Moving both upper and lower extremities spontaneously. PSYCHIATRIC: Appropriate mood and affect. Insight and judgment normal. Results Labs CBC & Chem 7: 11/02/18 20:15 11/02/18 20:15 Imaging Impressions Chest X-Ray 11/02/18 20:11 CONCLUSION: Slight left lung base atelectasis. Head CT 11/02/18 20:11 CONCLUSION: 1. Stable senescent changes without acute intracranial abnormality. . Caprini VTE Risk Assessment Caprini VTE Risk Assessment: No/Low Risk (score <= 1) Caprini Risk Assessment Model: Point Value = 1 Point Value = 2 Point Value = 3 Point Value = 5 Age 41-60 Minor surgery BMI > 25 kg/m2 Swollen legs Varicose veins or History of unexplained or recurrent spontaneous Oral contraceptives or hormone replacement Sepsis (< 1 month) Serious lung disease, including pneumonia (< 1 month) Abnormal pulmonary function Acute myocardial infarction Congestive heart failure (< 1 month) History of inflammatory bowel disease Medical patient at bed rest Age 61-74 Arthroscopic surgery Major open surgery (> 45 min) Laparoscopic surgery (> 45 min) Malignancy Confined to bed (> 72 hours) Immobilizing plaster cast Central venous access Age >= 75 History of VTE Family history of VTE Factor V Leiden Prothrombin [id number] Lupus anticoagulant Anticardiolipin antibodies Elevated serum homocysteine Heparin-induced thrombocytopenia Other congenital or acquired thrombophilia Stroke (< 1 month) Elective arthroplasty Hip, pelvis, or leg fracture Acute spinal cord injury (< 1 month) Prophylaxis Regimen: Total Risk Factor Score Risk Level Prophylaxis Regimen 0-1 Low Early ambulation 2 Moderate Order ONE of the following: *Sequential Compression Device (SCD) *Heparin 5000 units SQ BID 3-4 Higher Order ONE of the following medications: *Heparin 5000 units SQ TID *Enoxaparin/Lovenox 40 mg SQ daily (WT < 150 kg, CrCl > 30 mL/min) *Enoxaparin/Lovenox 30 mg SQ daily (WT < 150 kg, CrCl > 10-29 mL/min) *Enoxaparin/Lovenox 30 mg SQ BID (WT < 150 kg, CrCl > 30 mL/min) AND/OR *Sequential Compression Device (SCD) 5 or more Highest Order ONE of the following medications: *Heparin 5000 units SQ TID (Preferred with Epidurals) *Enoxaparin/Lovenox 40 mg SQ daily (WT < 150 kg, CrCl > 30 mL/min) *Enoxaparin/Lovenox 30 mg SQ daily (WT < 150 kg, CrCl > 10-29 mL/min) *Enoxaparin/Lovenox 30 mg SQ BID (WT < 150 kg, CrCl > 30 mL/min) AND *Sequential Compression Device (SCD) Assessment and Plan (1) Leukocytosis: Code(s): D72.829 - Elevated white blood cell count, unspecified Status: Acute (2) COPD (chronic obstructive pulmonary disease): Code(s): J44.9 - Chronic obstructive pulmonary disease, unspecified Status: Acute (3) Encephalopathy: Code(s): G93.40 - Encephalopathy, unspecified Status: Acute Plan A/P: 1. Leukocytosis: WBC 20.2 earlier, now 19.8, recent steroid use, however notes Medrol Dosepak completed several days ago. CXR w/ left base atelectasis. In light of cough and leukocytosis, will start on empiric tx w/ Levaquin, repeat labs in am. H/o CLL, however WBC essentially normal at baseline per review of labs, follows w/ Dr. Spear, will consult as needed. U/a pending, will follow for possible UTI. 2. Encephalopathy: increased confusion x1 wk since start of symptoms, CT Head w/ no acute findings, Neuro Checks 3. COPD: Chronic Respiratory Failure, follows w/ Dr. José, recently completed Medrol Dosepak few days ago, DuoNeb prn, continue home medications. 4. DVT Prophylaxis: SCD/Teds 5. Social work for d/c planning as needed 6. Case discussed w/ ER physician at length, labs/records/imaging reviewed by me. _ (1) Leukocytosis Qualifiers: Leukocytosis type: lymphocytosis Qualified Code(s): D72.820 - Lymphocytosis ( symptomatic)
[2018-11-03 01:24] LABS: Bilirubin,Urine Negative (Negative); Clarity,Urine Hazy (Clear); Color,Urine Yellow (Yellw/Straw); Glucose,Urine (UA) Negative (Negative); Leukocyte Esterase,Urine Negative (Negative); Mucus,Urine Few /lpf (Occasional); Nitrite,Urine Negative (Negative); Specific Gravity,Urine 1.017 (1.002-1.035)
[2018-11-03] MEDS: Sod Chloride 0.9% Inj 1,000 ML IV.CONT SCH ×3 (02:23→20:27)
--- NOTE | 2018-11-03 07:40 | P.CON ---
History of Present Illness Service: Hematology/oncology. Consult date: 11/03/18 Requesting Physician: Francisca Pink Reason for Consult: Patient with history of chronic lymphocytic leukemia. Primary Care Provider: Jian Duncan MD Chief Complaint: Confusion and difficulty with memory. History of Present Illness: Mr. Zurita is a very pleasant 83-year-old male who is followed in the outpatient setting by my associate Dr. Spear for a diagnosis of chronic lymphocytic leukemia (Echeverria stage 0). The patient reports also having history of COPD, coronary artery disease and hypertension. About 2 weeks ago the patient reports being initiated on oral corticosteroids for management of a COPD exacerbation by his outside deliverer Dr. Rojelio Martin. He completed corticosteroid therapy about 4 days ago. After initiation of corticosteroids the patient reports feeling increasingly confused and that he was having difficulty remembering things. The patient's also noticed a change, and example the patient provides is that he "could not remember his morning prayers "which he had been residing for decades every morning. The patient denies having had any additional symptoms other than occasional cough and lower back pain. The patient denies fevers, chills, night sweats, difficulty breathing (recently) , chest pain, nausea vomiting or diarrhea. He presents to the emergency department last night for further evaluation. CT scan of the head was performed which revealed no acute abnormalities. Chest x- ray was also performed which revealed possible atelectasis involving the left lower lung. Patient has been empirically initiated on IV levofloxacin. Blood work performed indicated lymphocytosis consistent with CLL, without evidence of anemia or thrombus cytopenia. Review of Systems Constitutional: Reports fatigue, Denies anorexia, Denies chills, Denies excessive sweating, Denies fever(s), Denies lack of energy, Denies weakness, Denies weight gain, Denies weight loss Eyes: Denies blurry vision, Denies change in vision Comments: Patient reports history of macular degeneration. Ears, Nose, Mouth, and Throat: Denies change in voice, Denies dizziness, Denies throat swelling, Denies tongue swelling Cardiovascular: Denies chest pain, Denies chest pain with activity, Denies leg swelling, Denies shortness of breath with activity, Denies shortness of breath when lying down, Denies shortness of breath causing sudden awakening Respiratory: Reports cough, Denies chest congestion, Denies coughing up blood, Denies shortness of breath with activity, Denies wheezing Gastrointestinal: Denies abdominal pain, Denies black, tarry stools, Denies vomiting, Denies vomiting blood Genitourinary: Denies blood in urine Musculoskeletal: Denies abnormal walking, Denies muscle weakness, Denies neck pain, Denies tingling Skin/Breast: Denies change in skin color, Denies redness, Denies stretch bullard Neurologic: Reports memory loss, Denies abnormal speech, Denies dizziness, Denies frequent falls, Denies headache(s), Denies lack of coordination, Denies loss of vision, Denies numbness, Denies seizure-like activity, Denies tremor(s) Psychiatric: Reports confusion, Denies anxiety Endocrine: Denies cold intolerance Hematologic/Lymphatic: Denies easy bleeding Allergic/Immunologic: Denies GI upset with certain foods PMFSH - History History Provided By: Patient - Medical History Medical History: Medical History (Last Updated 11/03/18 @ 07:34 by Joaquin Pierce MD) Arthritis COPD (chronic obstructive pulmonary disease) Cataract Chronic lymphocytic leukemia Coronary artery disease HTN (hypertension) History of open sigmoidectomy Macular degeneration Sigmoid diverticulosis - Surgical History Surgical History: Surgical History (Last Updated 11/03/18 @ 07:34 by Joaquin Pierce MD) History of appendectomy History of cholecystectomy Hx of inguinal hernia surgery Previous back surgery S/P CABG x 4 S/P hernia surgery S/P laparotomy - Family History Family History: Family History (Last Updated 11/03/18 @ 07:34 by Joaquin Pierce MD) Mother COPD (chronic obstructive pulmonary disease) Father Hodgkin lymphoma - Social History I have reviewed the patient's Social History: Yes - Tobacco History Second Hand Smoke Exposure: No Tobacco Use In Past 30 Days: No Smoking Status: Former smoker (Quit smoking 15-20 years ago) - Alcohol History How Often Do You Have a Drink Containing Alcohol: Never - Substance Use History Substance History: No History of Abuse - Travel History Recent Travel in the [place] Within the Last 8 Weeks: No Recent Travel Out of the Country Within the Last 8 Weeks: No - Immunization History Tetanus Immunization: Unsure Medications and Allergies Active Medications: Active Medications Acetaminophen (Tylenol) 650 mg PO Q4H PRN PRN Reason: Temp > 100.4 Al Hydroxide/Mg Hydroxide (Milk Of Magnesia Liq) 30 ml PO Q12H PRN PRN Reason: Mild Constipation Albuterol (Ventolin Hfa Inh) 1 puff INH Q4H PRN PRN Reason: Shortness Of Breath Aspirin (Ecotrin) 81 mg PO DAILY [facility] Bisacodyl (Dulcolax Supp) 10 mg RECTAL DAILY PRN PRN Reason: SEVERE CONSITIPATION Sodium Chloride (Ns Inj) 1,000 mls @ 100 mls/hr IV.CONT .Q10H [facility] Last Admin: 11/03/18 02:23 Dose: 100 mls/hr Levofloxacin/Dextrose (Levaquin 750 Mg Premix Inj) 150 mls @ 100 mls/hr IV.SIG Q24H [facility] Last Infusion: 11/03/18 03:55 Dose: Infused Lactulose (Lactulose Liq) 30 ml PO DAILY PRN PRN Reason: SEVERE CONSITIPATION Non-Formulary Medication (Tiotropium-Olodaterol [Stiolto Respimat]) 2 puff INHALATION DAILY [facility] Ondansetron HCl (Zofran Inj) 4 mg IV.PUSH Q6H PRN PRN Reason: NAUSEA OR VOMITING Senna/Docusate Sodium (Ailyn-Colace) 1 tab PO BID [facility] Sennosides (Senokot) 17.2 mg PO Q12H PRN PRN Reason: Moderate Constipation Sodium Chloride (Ns Flush) 2 ml IV.FLUSH BID [facility] Sodium Chloride (Ns Flush) 2 ml IV.FLUSH PRN PRN PRN Reason: FLUSH AFTER USING IV ACCESS Tramadol HCl (Ultram) 50 mg PO Q6H PRN PRN Reason: PAIN SCALE 6 TO 10 Allergies Allergy/AdvReac Type Severity Reaction Status Date / Time ketorolac AdvReac Severe vomit Verified 11/02/18 19:28 no narcotics AdvReac Mild Anaphylaxis Uncoded 11/02/18 19:28 Home Medications Medication Instructions Recorded Confirmed Type albuterol sulfate [ProAir HFA] 1 puff INHALATION Q4-6H PRN 11/02/18 11/02/18 History amlodipine 5 mg PO BID 11/02/18 11/02/18 History aspirin [Aspirin Low Dose] 81 mg PO DAILY 11/02/18 11/02/18 History bisacodyl [Dulcolax (bisacodyl)] 5 mg PO DAILY 11/02/18 11/02/18 History frewvbif-xbh-XB-lycopen-lutein 1 tab PO DAILY 11/02/18 11/02/18 History [Centrum Silver] omeprazole 40 mg PO DAILY 11/02/18 11/02/18 History ondansetron 8 mg PO BID PRN 11/02/18 11/02/18 History tiotropium-olodaterol [Stiolto 2 puff INHALATION DAILY 11/02/18 11/02/18 History Respimat] tramadol 50 mg PO Q6H 11/02/18 11/02/18 History Physical Exam Vital signs: Vital Signs 11/02/18 19:20 11/02/18 19:44 11/02/18 20:30 Temperature 98.5 F Pulse Rate 69 Respiratory Rate 20 Blood Pressure 167/67 H Pulse Oximetry 95 95 95 11/02/18 22:12 11/02/18 22:14 11/02/18 23:12 Temperature Pulse Rate 70 74 78 Respiratory Rate 16 18 Blood Pressure 126/61 136/99 H Pulse Oximetry 95 97 11/03/18 01:18 11/03/18 02:09 11/03/18 03:55 Temperature 98.3 F 98.5 F Pulse Rate 71 64 Respiratory Rate 12 18 16 Blood Pressure 153/70 H 118/60 Pulse Oximetry 93 L 95 Intake & Output 11/02/18 11/03/18 11/03/18 18:59 06:59 18:59 Intake Total 150 / 150 Balance 150 / 150 Weight 73.482 kg Intake: IV 150 / 150 Levaquin 750 mg Premix Inj 150 150 / 150 ML @ 100 mls/hr IV.SIG Q24H [facility] Rx#:[id number] Other: Date of Last Bowel Movement 11/02/18 Weight On Admission 73.482 kg Narrative: General: Elderly male, laying in bed, not acutely distressed. Awake, alert, oriented x3. He is of moderate build, does not appear to be cachectic or chronically ill. HEENT: Head atraumatic normocephalic, conjunctivae are non-pale sclerae anicteric. Status post cataract surgery. PERRLA, EOMI. Neck exam no palpable cervical lymphadenopathy. No JVD. Oral exam: No pharyngeal erythema no masses no ulcers. Respiratory: Good air movement bilaterally no added breath sounds, prolonged expiratory phase. CVS: Regular rate and rhythm, S1-S2 no obvious murmurs rubs gallops. Good peripheral pulses. No peripheral edema specifically pretibial edema. Abdominal exam: Thin abdomen, soft, nontender, nondistended. Laparotomy surgical scar noted. No splenomegaly appreciated. Positive bowel sounds. No inguinal lymphadenopathy appreciated. Muscular skeletal: Adequate muscle mass, tone and strength. 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 Lymph node examination: No cervical lymphadenopathy, no supraclavicular lymphadenopathy, no axial lymphadenopathy, no inguinal lymphadenopathy. Skin examination: Nonfocal. Psychiatric: Alert, awake, oriented, understanding of our conversations. Results - Labs CBC & Chem 7: 11/02/18 20:15 11/02/18 20:15 Labs: Laboratory Results - last 24 hr 11/02/18 11/02/18 11/02/18 20:15 20:15 20:15 WBC 19.8 H RBC 5.25 Hgb 16.4 Hct 48.3 MCV 92.0 MCH 31.2 MCHC 33.9 RDW 15.6 Plt Count 166 MPV 8.8 Prelim Diff (Auto) Slide review pending Neut % (Auto) 27.2 Lymph % (Auto) 67.6 H [place] % (Auto) 4.6 Eos % (Auto) 0.3 Baso % (Auto) 0.3 Neut # (Auto) 5.4 Lymph # (Auto) 13.4 H [place] # (Auto) 0.9 Eos # (Auto) 0.1 Baso # (Auto) 0.0 WBC Differential Manual diff final Seg Neuts % (Manual) 28 Lymphocytes % (Manual) 68 H Monocytes % (Manual) 4 Abs Neuts (Manual) 5.5 Differential Comment . Platelet Estimate Normal Platelet Morphology Normal RBC Morphology Normal Sodium 142 Potassium 3.8 Chloride 106 Carbon Dioxide 27.8 Anion Gap 8 BUN 14 Creatinine 1.10 Estimated GFR 64 L Random Glucose 94 Lactic Acid 1.1 Calcium 8.8 Magnesium 2.5 Total Bilirubin 0.4 AST 13 L ALT 21 Alkaline Phosphatase 77 Total Protein 7.3 Albumin 3.6 Lipase 293 Urine Color Urine Clarity Urine pH Ur Specific [place] Urine Protein Urine Glucose (UA) Urine Ketones Urine Occult Blood Urine Nitrate Urine Bilirubin Urine Urobilinogen Ur Leukocyte Esterase Urine RBC Urine WBC Urine Mucus Micro UA Comment Ur Microscopic Review Urine Culture Comments 11/02/18 11/03/18 20:15 00:02 WBC RBC Hgb Hct MCV MCH MCHC RDW Plt Count MPV Prelim Diff (Auto) Neut % (Auto) Lymph % (Auto) [place] % (Auto) Eos % (Auto) Baso % (Auto) Neut # (Auto) Lymph # (Auto) [place] # (Auto) Eos # (Auto) Baso # (Auto) WBC Differential Seg Neuts % (Manual) Lymphocytes % (Manual) Monocytes % (Manual) Abs Neuts (Manual) Differential Comment Platelet Estimate Platelet Morphology RBC Morphology Sodium Potassium Chloride Carbon Dioxide Anion Gap BUN Creatinine Estimated GFR Random Glucose Lactic Acid Calcium Magnesium Total Bilirubin AST ALT Alkaline Phosphatase Total Protein Albumin Lipase Cancelled Urine Color Yellow Urine Clarity Hazy H Urine pH 5.0 Ur Specific [place] 1.017 Urine Protein Negative Urine Glucose (UA) Negative Urine Ketones Negative Urine Occult Blood Negative Urine Nitrate Negative Urine Bilirubin Negative Urine Urobilinogen Less than 2 Ur Leukocyte Esterase Negative Urine RBC 1 Urine WBC 1 Urine Mucus Few H Micro UA Comment Culture not ind Ur Microscopic Review Not Reportable Urine Culture Comments Culture not ind - Imaging Impressions Chest X-Ray 11/02/18 20:11 CONCLUSION: Slight left lung base atelectasis. Head CT 11/02/18 20:11 CONCLUSION: 1. Stable senescent changes without acute intracranial abnormality. . Assessment and Plan - Plan Mr. Zurita is a very pleasant 83-year-old male with a history of chronic lymphocytic leukemia, he is carried this diagnosis at least since 2012. He is treatment alicia and has been on observation alone under the care of my associate Dr. Spear. The patient presents to the hospital with several day history of confusion, this comes at the tail and of an approximate 2-week course of tapering dose of prednisone; patient had been prescribed prednisone by his outside deliverer Dr. Rojelio Martin for management of what was assessed to be a COPD exacerbation. The patient otherwise denies localizing symptoms and specifically denies fevers, chills, night sweats, headaches, or other acute illness. He also denies having recently been on any additional or other medications. He has been admitted to the hospital for further workup and management of the confusion, CT head performed last night was nonfocal, chest x-ray indicates possible atelectasis involving the left lung base. He is empirically been initiated on levofloxacin for possible pneumonia. Hematology is been asked to see him to determine if his chronic lymphocytic leukemia may be contributing to his current issues. Recommendation: 1. CLL: Chronic issue, this is likely not contributing to his acute medical problem. His chronic lymphocytic leukemia is without evidence of clinically significant lymphadenopathy, organ dysfunction, hematologic sequelae such as anemia or thrombus cytopenia. The CLL warrants no specific therapeutic intervention at this time. I have requested quantitative immunoglobulins to rule out hypogammaglobulinemia. I would advised outpatient follow-up with Dr. Spear; it has been over one year since the patient was last seen in the hematology clinic.
[2018-11-03 09:18] LABS: Baso % (Auto) 0.2 % (0.0-2.0); Eos % (Auto) 0.3 % (0.0-4.0); Hematocrit 40.5 % (39.0-51.0); Lymph % (Auto) 66.9 % (9.0-44.0); Mean Corpuscular HGB Conc 34.5 % (32.0-36.0); Mean Corpuscular Hemoglobin 31.4 pg (27.0-34.0); Mean Corpuscular Volume 91.1 fL (80.0-100.0); Mean Platelet Volume 8.1 fL (7.0-11.0); Mono # (Auto) 0.5 th/mm3 (0.0-0.9); Mono % (Auto) 3.7 % (0.0-8.0); Neut # (Auto) 3.9 th/mm3 (1.8-7.7); Neut % (Auto) 28.9 % (16.0-70.0); Platelet Count 131 th/mm3 (150-450); Red Blood Count 4.45 mil/mm3 (4.50-5.90); Red Cell Distribution Width 15.2 % (11.6-17.2); White Blood Count 13.4 th/mm3 (4.0-11.0)
[2018-11-03] MEDS: Senna/Docusate Sodium 8.6/50 MG Tablet PO SCH ×3 (09:39→21:14)
[2018-11-03] MEDS: Non-Formulary Drug (Tiotropium-Olodaterol [Stiolto Respimat] 2 PUFF) INHALATION SCH (09:40)
[2018-11-03 09:59] LABS: Alanine Aminotransferase 18 U/L (12-78); Albumin 2.7 g/dL (3.4-5.0); Alkaline Phosphatase 58 U/L (45-117); Anion Gap 7 meq/L (5-15); Aspartate Aminotransferase 9 U/L (15-37); Blood Urea Nitrogen 11 mg/dL (7-18); Calcium 8.1 mg/dL (8.5-10.1); Carbon Dioxide 25.1 meq/L (21.0-32.0); Chloride 108 meq/L (98-107); Glomerular Filtration Rate 82 mL/min (>89); Glucose,Random 96 mg/dL (74-106); Potassium 4.1 meq/L (3.5-5.1); Sodium 140 meq/L (136-145); Total Protein 5.6 g/dL (6.4-8.2)
[2018-11-03 10:09] LABS: Immunoglobulin A 86 mg/dL (107-591); Immunoglobulin G 468 mg/dL (690-1690)
[2018-11-03 10:14] LABS: Eosinophils 1 % (0-4); Monocytes 3 % (0-8)
[2018-11-03 10:15] LABS: Lymphocytes 73 % (9-44); Platelet Morphology Normal (Normal); Smudge Cells Present
[2018-11-03 10:16] LABS: RBC Morphology Normal (Normal)
[2018-11-03 10:38] LABS: Immunoglobulin M 22 mg/dL (37-225)
--- NOTE | 2018-11-03 13:33 | P.PN ---
Subjective Interval history: Follow-up for leukocytosis, encephalopathy, history of CLL, COPD: Patient seen and examined, awake, alert oriented x3. Was noted ambulating to bathroom without any difficulty. Patient states he feels a little bit better today, has minimal cough, some sputum that is white. No fever. No chest pain, shortness of breath. Diet is okay. No acute changes overnight. Physical Exam Vital signs: Vital Signs 11/02/18 19:20 11/02/18 19:44 11/02/18 20:30 Temperature 98.5 F Pulse Rate 69 Respiratory Rate 20 Blood Pressure 167/67 H Pulse Oximetry 95 95 95 11/02/18 22:12 11/02/18 22:14 11/02/18 23:12 Temperature Pulse Rate 70 74 78 Respiratory Rate 16 18 Blood Pressure 126/61 136/99 H Pulse Oximetry 95 97 11/03/18 01:18 11/03/18 02:09 11/03/18 03:55 Temperature 98.3 F 98.5 F Pulse Rate 71 64 Respiratory Rate 12 18 16 Blood Pressure 153/70 H 118/60 Pulse Oximetry 93 L 95 11/03/18 08:00 11/03/18 12:00 Temperature 98.0 F 97.5 F L Pulse Rate 62 68 Respiratory Rate 17 18 Blood Pressure 143/62 H 143/66 H Pulse Oximetry 98 97 Intake & Output 11/02/18 11/03/18 11/03/18 18:59 06:59 18:59 Intake Total 150 / 150 Balance 150 / 150 Weight 73.482 kg Intake: IV 150 / 150 Levaquin 750 mg Premix Inj 150 150 / 150 ML @ 100 mls/hr IV.SIG Q24H [facility] Rx#:[id number] Other: Date of Last Bowel Movement 11/02/18 Weight On Admission 73.482 kg Narrative: General: Elderly male, laying in bed, not acutely distressed. Awake, alert, oriented x3. HEENT: Head atraumatic normocephalic, conjunctivae are non-pale sclerae anicteric. PERRL, EOMI. Neck exam no palpable cervical lymphadenopathy. No JVD. Oral exam: No pharyngeal erythema no masses no ulcers. Respiratory: Good air movement bilaterally no added breath sounds, prolonged expiratory phase. CVS: Regular rate and rhythm, S1-S2 no obvious murmurs rubs gallops. Good peripheral pulses. No peripheral edema specifically pretibial edema. Abdominal exam: Thin abdomen, soft, nontender, nondistended. Positive bowel sounds. Muscular skeletal: Adequate muscle mass, tone and strength. 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 No focal deficits. Speech clear Skin examination: Nonfocal. Psychiatric: Appropriate. Results - Labs CBC & Chem 7: 11/03/18 08:45 11/03/18 08:45 Laboratory Results - last 24 hr 11/02/18 11/02/18 11/02/18 20:15 20:15 20:15 WBC 19.8 H RBC 5.25 Hgb 16.4 Hct 48.3 MCV 92.0 MCH 31.2 MCHC 33.9 RDW 15.6 Plt Count 166 MPV 8.8 Prelim Diff (Auto) Slide review pending Neut % (Auto) 27.2 Lymph % (Auto) 67.6 H [place] % (Auto) 4.6 Eos % (Auto) 0.3 Baso % (Auto) 0.3 Neut # (Auto) 5.4 Lymph # (Auto) 13.4 H [place] # (Auto) 0.9 Eos # (Auto) 0.1 Baso # (Auto) 0.0 WBC Differential Manual diff final Seg Neuts % (Manual) 28 Band Neuts % (Manual) Lymphocytes % (Manual) 68 H Monocytes % (Manual) 4 Eosinophils % (Manual) Abs Neuts (Manual) 5.5 Differential Comment . Smudge Cells Platelet Estimate Normal Platelet Morphology Normal RBC Morphology Normal Sodium 142 Potassium 3.8 Chloride 106 Carbon Dioxide 27.8 Anion Gap 8 BUN 14 Creatinine 1.10 Estimated GFR 64 L Random Glucose 94 Lactic Acid 1.1 Calcium 8.8 Magnesium 2.5 Total Bilirubin 0.4 AST 13 L ALT 21 Alkaline Phosphatase 77 Total Protein 7.3 Albumin 3.6 Lipase 293 Urine Color Urine Clarity Urine pH Ur Specific [place] Urine Protein Urine Glucose (UA) Urine Ketones Urine Occult Blood Urine Nitrate Urine Bilirubin Urine Urobilinogen Ur Leukocyte Esterase Urine RBC Urine WBC Urine Mucus Micro UA Comment Ur Microscopic Review Urine Culture Comments IgG IgA IgM 11/02/18 11/03/18 11/03/18 20:15 00:02 08:45 WBC 13.4 H RBC 4.45 L Hgb 14.0 D Hct 40.5 MCV 91.1 MCH 31.4 MCHC 34.5 RDW 15.2 Plt Count 131 L MPV 8.1 Prelim Diff (Auto) Slide review pending Neut % (Auto) 28.9 Lymph % (Auto) 66.9 H [place] % (Auto) 3.7 Eos % (Auto) 0.3 Baso % (Auto) 0.2 Neut # (Auto) 3.9 Lymph # (Auto) 9.0 H [place] # (Auto) 0.5 Eos # (Auto) 0.0 Baso # (Auto) 0.0 WBC Differential Manual diff final Seg Neuts % (Manual) 22 Band Neuts % (Manual) 1 Lymphocytes % (Manual) 73 H Monocytes % (Manual) 3 Eosinophils % (Manual) 1 Abs Neuts (Manual) 3.1 Differential Comment . Smudge Cells Present H Platelet Estimate Low L Platelet Morphology Normal RBC Morphology Normal Sodium Potassium Chloride Carbon Dioxide Anion Gap BUN Creatinine Estimated GFR Random Glucose Lactic Acid Calcium Magnesium Total Bilirubin AST ALT Alkaline Phosphatase Total Protein Albumin Lipase Cancelled Urine Color Yellow Urine Clarity Hazy H Urine pH 5.0 Ur Specific [place] 1.017 Urine Protein Negative Urine Glucose (UA) Negative Urine Ketones Negative Urine Occult Blood Negative Urine Nitrate Negative Urine Bilirubin Negative Urine Urobilinogen Less than 2 Ur Leukocyte Esterase Negative Urine RBC 1 Urine WBC 1 Urine Mucus Few H Micro UA Comment Culture not ind Ur Microscopic Review Not Reportable Urine Culture Comments Culture not ind IgG IgA IgM 11/03/18 11/03/18 08:45 08:45 WBC RBC Hgb Hct MCV MCH MCHC RDW Plt Count MPV Prelim Diff (Auto) Neut % (Auto) Lymph % (Auto) [place] % (Auto) Eos % (Auto) Baso % (Auto) Neut # (Auto) Lymph # (Auto) [place] # (Auto) Eos # (Auto) Baso # (Auto) WBC Differential Seg Neuts % (Manual) Band Neuts % (Manual) Lymphocytes % (Manual) Monocytes % (Manual) Eosinophils % (Manual) Abs Neuts (Manual) Differential Comment Smudge Cells Platelet Estimate Platelet Morphology RBC Morphology Sodium 140 Potassium 4.1 Chloride 108 H Carbon Dioxide 25.1 Anion Gap 7 BUN 11 Creatinine 0.89 Estimated GFR 82 L Random Glucose 96 Lactic Acid Calcium 8.1 L Magnesium Total Bilirubin 0.7 AST 9 L ALT 18 Alkaline Phosphatase 58 Total Protein 5.6 L D Albumin 2.7 L D Lipase Urine Color Urine Clarity Urine pH Ur Specific [place] Urine Protein Urine Glucose (UA) Urine Ketones Urine Occult Blood Urine Nitrate Urine Bilirubin Urine Urobilinogen Ur Leukocyte Esterase Urine RBC Urine WBC Urine Mucus Micro UA Comment Ur Microscopic Review Urine Culture Comments IgG 468 L Cancelled IgA 86 L Cancelled IgM 22 L Cancelled Microbiology 11/02/18 20:14 Blood - Peripheral Aerobic Blood Culture - Preliminary No growth in 1 day 11/02/18 20:14 Blood - Peripheral Anaerobic Blood Culture - Preliminary No growth in 1 day 11/02/18 20:00 Blood - Peripheral Aerobic Blood Culture - Preliminary No growth in 1 day 11/02/18 20:00 Blood - Peripheral Anaerobic Blood Culture - Preliminary No growth in 1 day 11/02/18 22:15 Nasal Wash Influenza Types A,B Antigen - Final Negative for FLU A and B antigen Infection due to influenza A or B cannot be ruled out since the antigen present in the sample may be below the detection limit of the test. - Imaging Impressions Chest X-Ray 11/02/18 20:11 CONCLUSION: Slight left lung base atelectasis. Head CT 11/02/18 20:11 CONCLUSION: 1. Stable senescent changes without acute intracranial abnormality. . Assessment and Plan - Assessment (1) Leukocytosis Code(s): D72.829 - Elevated white blood cell count, unspecified Status: Acute (2) COPD (chronic obstructive pulmonary disease) Code(s): J44.9 - Chronic obstructive pulmonary disease, unspecified Status: Acute (3) Encephalopathy Code(s): G93.40 - Encephalopathy, unspecified Status: Acute - Plan 83-year-old male with a PMH of HTN, COPD, CAD, Chronic Back Pain and CLL who was referred to the ER by his PCP for elevated WBC of 25 on outpatient labs. States he's been having generalized weakness and fatigue x1 wk w/ non- productive cough, denies fever or chills. Follows w/ Dr. José for COPD, states he completed Medrol Dosepak few days ago. also notes increased confusion/forgetfulness in the last week. On arrival, BP 167/67, HR 69, O2 sat 95% on RA, Afebrile. WBC 19.8, previously 20.2 on 11/02/2018. Chemistry unremarkable. UA pending. CT Head with stable findings, no acute abnormality. CXR slight left lung base atelectasis. Leukocytosis: WBC 20.2 earlier, now 19.8, recent steroid use, however notes Medrol Dosepak completed several days ago. CXR w/ left base atelectasis. Poss. COPD exacerbation with bronchitis -continue with Levaquin -Influenza swab negative -Follow blood cultures, negative. -UA negative -follow CBC, WBC trending down 13.4 today. No fever CLL, follows with Dr. Spear -appreciate oncology input, seen by Dr. Pierce. Note reviewed, CLL chronic not likely contributing to acute medical problem. No lymphadenopathy. Requested quant. immunoglobulins to r/o hypogammaglobulinemia. Counseled to f/u with Dr. Spear. Encephalopathy: increased confusion x1 wk since start of symptoms CT Head w/ no acute findings -continue with neuro Checks -pt. is oriented x 3 today, continue to monitor COPD, recent exacerbation. Not oxygen dependent. Band Cutter is Dr. José, recently completed Medrol dose pack -continue duonebs PRN DVT Prophylaxis: SCD/Teds Follow labs in am, WBC improving. Poss dc in am Code Status: Full code Discussed Condition With: RN,pt, CM Discharge Planning: Home in 1-2 days (1) Leukocytosis Qualifiers: Leukocytosis type: lymphocytosis Qualified Code(s): D72.820 - Lymphocytosis ( symptomatic)
--- NOTE | 2018-11-03 15:07 | ECG ---
Date Performed: 11/03/2018 Time Performed: 01:39:58 PTAGE: 83 years EKG: Sinus rhythm NONSPECIFIC ST & T-WAVE ABNORMALITY BORDERLINE ECG PREVIOUS TRACING : 06/20/2016 12.24 Since the previous tracing, no significant change noted DOCTOR: Duyen Tripathi Interpretating Date/Time 11/03/2018 15:07:09
[2018-11-03 20:26] VITALS: RESP 16
[2018-11-04] MEDS ORDERED: amLODIPine 5 MG Tablet PO ONE (00:20)
[2018-11-04] MEDS: Sod Chloride 0.9% Inj 1,000 ML IV.CONT SCH (04:35)
[2018-11-04] MEDS ORDERED: Sod Chloride 0.9% Inj 1,000 ML IV.CONT SCH (05:16)
[2018-11-04 08:54] VITALS: BP 162/74; PULSE 63; TEMP 98.6; O2SAT 99
[2018-11-04] MEDS: Senna/Docusate Sodium 8.6/50 MG Tablet PO SCH (08:55)
[2018-11-04] MEDS: Non-Formulary Drug (Tiotropium-Olodaterol [Stiolto Respimat] 2 PUFF) INHALATION SCH (08:58)
[2018-11-04] MEDS ORDERED: amLODIPine 5 MG Tablet PO SCH (09:00)
--- NOTE | 2018-11-04 10:21 | P.PN ---
Subjective Interval history: Follow-up for leukocytosis, encephalopathy, history of CLL, COPD: Patient seen and examined, awake, alert oriented x3. Intermittent cough, no sputum, no wheezing. No fever overnight. Anxious to go home. Has been ambulating without any difficulty. Physical Exam Vital signs: Vital Signs 11/03/18 12:00 11/03/18 16:00 11/03/18 20:00 Temperature 97.5 F L 98.5 F 98.3 F Pulse Rate 68 65 66 Respiratory Rate 18 18 16 Blood Pressure 143/66 H 158/67 H 173/71 H Pulse Oximetry 97 97 94 L 11/03/18 23:22 11/04/18 01:51 11/04/18 08:00 Temperature 98.7 F 98.2 F 98.6 F Pulse Rate 62 61 63 Respiratory Rate 16 16 16 Blood Pressure 184/80 H 149/65 H 162/74 H Pulse Oximetry 97 95 99 Intake & Output 11/03/18 11/04/18 11/04/18 18:59 06:59 18:59 Intake Total 1000 / 1000 2150 / 2150 Balance 1000 / 1000 2150 / 2150 Intake: IV 1000 / 1000 2150 / 2150 NS Inj 1,000 ML @ 100 mls/hr IV 1000 / 1000 1999 / 1999 .CONT .Q10H [facility] Rx#:[id number] Levaquin 750 mg Premix Inj 150 150 / 150 ML @ 100 mls/hr IV.SIG Q24H [facility] Rx#:[id number] Other: # Voids 2 Date of Last Bowel Movement 11/03/18 11/03/18 Narrative: General: Elderly male, laying in bed, not acutely distressed. Awake, alert, oriented x3. HEENT: Head atraumatic normocephalic, conjunctivae are non-pale sclerae anicteric. PERRL, EOMI. Neck exam no palpable cervical lymphadenopathy. No JVD. Oral exam: No pharyngeal erythema no masses no ulcers. Respiratory: Good air movement bilaterally no added breath sounds, prolonged expiratory phase. Non productive cough. CVS: Regular rate and rhythm, S1-S2 no obvious murmurs rubs gallops. Good peripheral pulses. No peripheral edema specifically pretibial edema. Abdominal exam: Thin abdomen, soft, nontender, nondistended. Positive bowel sounds. Muscular skeletal: Adequate muscle mass, tone and strength. 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 No focal deficits. Speech clear Skin examination: Nonfocal. Psychiatric: Appropriate. Results - Labs CBC & Chem 7: 11/03/18 08:45 11/03/18 08:45 Laboratory Results - last 24 hr 11/03/18 08:45 IgM 22 L Microbiology 11/02/18 20:14 Blood - Peripheral Aerobic Blood Culture - Preliminary No growth in 1 day 11/02/18 20:14 Blood - Peripheral Anaerobic Blood Culture - Preliminary No growth in 1 day 11/02/18 20:00 Blood - Peripheral Aerobic Blood Culture - Preliminary No growth in 1 day 11/02/18 20:00 Blood - Peripheral Anaerobic Blood Culture - Preliminary No growth in 1 day Assessment and Plan - Assessment (1) Leukocytosis Code(s): D72.829 - Elevated white blood cell count, unspecified Status: Acute (2) COPD (chronic obstructive pulmonary disease) Code(s): J44.9 - Chronic obstructive pulmonary disease, unspecified Status: Acute (3) Encephalopathy Code(s): G93.40 - Encephalopathy, unspecified Status: Acute - Plan 83-year-old male with a PMH of HTN, COPD, CAD, Chronic Back Pain and CLL who was referred to the ER by his PCP for elevated WBC of 25 on outpatient labs. States he's been having generalized weakness and fatigue x1 wk w/ non- productive cough, denies fever or chills. Follows w/ Dr. José for COPD, states he completed Medrol Dosepak few days ago. also notes increased confusion/forgetfulness in the last week. On arrival, BP 167/67, HR 69, O2 sat 95% on RA, Afebrile. WBC 19.8, previously 20.2 on 11/02/2018. Chemistry unremarkable. UA pending. CT Head with stable findings, no acute abnormality. CXR slight left lung base atelectasis. Leukocytosis: WBC 20.2 earlier, now 19.8, recent steroid use, however notes Medrol Dosepak completed several days ago. CXR w/ left base atelectasis. Poss. COPD exacerbation with bronchitis -continue with Levaquin -Influenza swab negative -Follow blood cultures, negative. -UA negative -WBC trending down, 13.4 -CBC today CLL, follows with Dr. Spear -appreciate oncology input, seen by Dr. Pierce. Note reviewed, CLL chronic not likely contributing to acute medical problem. No lymphadenopathy. Requested quant. immunoglobulins to r/o hypogammaglobulinemia. Counseled to f/u with Dr. Spear. Encephalopathy: increased confusion x1 wk since start of symptoms CT Head w/ no acute findings -continue with neuro Checks -pt. is oriented x 3 today, continue to monitor COPD, recent exacerbation. Not oxygen dependent. Exhibit Carpenter is Dr. José, recently completed Medrol dose pack Poss bronchitis -continue duonebs PRN -overall improved -will dc home on Levaquin PO and Tessalon PRN DVT Prophylaxis: SCD/Teds Spoke to , doesn't want [facility] Pt. has been ambulating well Will wait for repeat CBC, if WBC continuing downward trend Discharge home today F/U Dr. José in one wee F/U Dr. Spear Code Status: Full code Discussed Condition With: RN,pt and , CM Discharge Planning: Home in 1-2 days (1) Leukocytosis Qualifiers: Leukocytosis type: lymphocytosis Qualified Code(s): D72.820 - Lymphocytosis ( symptomatic)
--- NOTE | 2018-11-04 10:38 | P.DS ---
Date of admission: 11/02/18 23:00 Primary care physician: Jian Duncan MD Attending physician on discharge: Christopher Sanchez Anticipated date of discharge: 11/04/18 Brief History from admission: This is a an 83-year-old male with a PMH of HTN, COPD, CAD, Chronic Back Pain and CLL who was referred to the ER by his PCP for elevated WBC of 25 on outpatient labs. States he's been having generalized weakness and fatigue x1 wk w/ non-productive cough, denies fever or chills. Follows w/ Dr. José for COPD, states he completed Medrol Dosepak few days ago. also notes increased confusion/forgetfulness in the last week. On arrival, BP 167/67, HR 69, O2 sat 95% on RA, Afebrile. WBC 19.8, previously 20.2 on 11/02/2018. Chemistry unremarkable. UA pending. CT Head with stable findings, no acute abnormality. CXR slight left lung base atelectasis. DS: Diagnosis - Discharge Diagnosis (1) Leukocytosis Status: Acute (2) COPD (chronic obstructive pulmonary disease) Status: Acute (3) Encephalopathy Status: Acute DS: Medications - Discharge Medications Prescriptions: benzonatate [Tessalon Perles] 100 mg PO TID PRN 7 Days #21 cap PRN Reason: Cough levofloxacin [Levaquin] 500 mg PO DAILY 5 Days #5 tab DS: Summary Hospital Course: 83-year-old male with a PMH of HTN, COPD, CAD, Chronic Back Pain and CLL who was referred to the ER by his PCP for elevated WBC of 25 on outpatient labs. States he's been having generalized weakness and fatigue x1 wk w/ non- productive cough, denies fever or chills. Follows w/ Dr. José for COPD, states he completed Medrol Dosepak few days ago. also notes increased confusion/forgetfulness in the last week. On arrival, BP 167/67, HR 69, O2 sat 95% on RA, Afebrile. WBC 19.8, previously 20.2 on 11/02/2018. Chemistry unremarkable. UA pending. CT Head with stable findings, no acute abnormality. CXR slight left lung base atelectasis. Leukocytosis: WBC 20.2 earlier, now 19.8, recent steroid use, however notes Medrol Dosepak completed several days ago. CXR w/ left base atelectasis. Poss. COPD exacerbation with bronchitis -Started on Levaquin -Influenza swab negative -Follow blood cultures, negative. -UA negative -WBC trended down, 13.4, no fever. CLL, follows with Dr. Spear -appreciate oncology input, seen by Dr. Pierce. CLL chronic not likely contributing to acute medical problem. No lymphadenopathy. Requested quant. immunoglobulins to r/o hypogammaglobulinemia. Counseled to f/u with Dr. Spear. Cleared for dc Encephalopathy: increased confusion x1 wk since start of symptoms CT Head w/ no acute findings -neuro Checks -pt. is oriented x 3 today, continue to monitor COPD, recent exacerbation. Not oxygen dependent. 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 José, recently completed Medrol dose pack Poss bronchitis -continued duonebs PRN -improved, some cough, no sputum. No wheezing. -Discharge home on Levaquin PO and Tessalon PRN Spoke to , doesn't want [facility] Pt. had been ambulating well Discharged home Instructed to F/U Dr. José in one week F/U Dr. Spear - Time Spent with Patient Total time spent providing and/or coordinating discharge services: Less than 30 minutes - Quality: VTE Deep Vein Thrombosis/Pulmonary Embolism Present on Admission: No Exam Vital signs: Vital Signs 11/03/18 12:00 11/03/18 16:00 11/03/18 20:00 Temperature 97.5 F L 98.5 F 98.3 F Pulse Rate 68 65 66 Respiratory Rate 18 18 16 Blood Pressure 143/66 H 158/67 H 173/71 H Pulse Oximetry 97 97 94 L 11/03/18 23:22 11/04/18 01:51 11/04/18 08:00 Temperature 98.7 F 98.2 F 98.6 F Pulse Rate 62 61 63 Respiratory Rate 16 16 16 Blood Pressure 184/80 H 149/65 H 162/74 H Pulse Oximetry 97 95 99 Intake & Output 11/03/18 11/04/18 11/04/18 18:59 06:59 18:59 Intake Total 1000 / 1000 2150 / 2150 Balance 1000 / 1000 2150 / 2150 Intake: IV 1000 / 1000 2150 / 2150 NS Inj 1,000 ML @ 100 mls/hr IV 1000 / 1000 1999 / 1999 .CONT .Q10H [facility] Rx#:[id number] Levaquin 750 mg Premix Inj 150 150 / 150 ML @ 100 mls/hr IV.SIG Q24H [facility] Rx#:[id number] Other: # Voids 2 Date of Last Bowel Movement 11/03/18 11/03/18 Results Procedures completed during hospitalization: none Labs on day of discharge: Labs from last 24 hours 11/03/18 08:45 IgM 22 L Preliminary micro results at discharge 11/02/18 20:14 Aerobic Blood Culture - Preliminary Blood - Peripheral No growth in 1 day Anaerobic Blood Culture - Preliminary No growth in 1 day 11/02/18 20:00 Aerobic Blood Culture - Preliminary Blood - Peripheral No growth in 1 day Anaerobic Blood Culture - Preliminary No growth in 1 day - Impressions ITS Impressions Chest X-Ray 11/02/18 20:11 CONCLUSION: Slight left lung base atelectasis. Head CT 11/02/18 20:11 CONCLUSION: 1. Stable senescent changes without acute intracranial abnormality. . Discharge Plan - Discharge Disposition Patient Disposition: Discharge Home - Discharge Condition Condition: Stable - Discharge Order Discharge Orders: Discharge Order (Routine); Ordered 11/04/18 Ordered By: Delia Landers - Discharge Details Anticipated Discharge Date: 11/04/18 - Physicians Team Primary Care Provider: Jian Duncan Attending Provider: Christopher Sanchez Other Providers: Joaquin Pierce MD
[2018-11-04 11:10] LABS: Hematocrit 45.6 % (39.0-51.0); Hemoglobin 15.4 gm/dL (13.0-17.0); Mean Corpuscular HGB Conc 33.7 % (32.0-36.0); Mean Corpuscular Hemoglobin 31.7 pg (27.0-34.0); Mean Corpuscular Volume 93.9 fL (80.0-100.0); Mean Platelet Volume 8.1 fL (7.0-11.0); Platelet Count 145 th/mm3 (150-450); Red Blood Count 4.85 mil/mm3 (4.50-5.90); Red Cell Distribution Width 15.1 % (11.6-17.2)
== END 2018-11-04 11:51 | disposition home or self-care (01) ==
LOC: NEPC 18:46 → NEDA 18:46 → NEPGCP 11-03 00:40
PROVIDERS: ADMIT Hospitalist; ATTEND Hospitalist
DX: R79.89 Other specified abnormal findings of blood chemistry; D72.820 Lymphocytosis (symptomatic); R42 Dizziness and giddiness; G93.40 Encephalopathy, unspecified; R06.02 Shortness of breath; Z87.891 Personal history of nicotine dependence; J44.9 Chronic obstructive pulmonary disease, unspecified; I10 Essential (primary) hypertension; C91.10 Chronic lymphocytic leukemia of B-cell type not having achieved remission; G89.29 Other chronic pain; R53.83 Other fatigue; J98.11 Atelectasis; I25.10 Atherosclerotic heart disease of native coronary artery without angina pectoris; M54.5 Low back pain; R53.1 Weakness
CPT/HCPCS: 36415; 70450; 71010; 71045; 80053; 81001; 82784; 83605; 83690; 83735; 85025; 85027; 87040; 87275; 87276; 87804; 90775; 93005; 96361; 96365; 96366; 96375; 99285; G0378; J1956; J2405; J7030